=== PATIENT | male | born 1975 | race Caucasian/White ===

== ENCOUNTER 2018-09-02 12:24 | Emergency (ER) | payer OTHER ==
--- NOTE | 2018-09-02 13:05 | EDM.PDOC ---
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 He struck the back of his head fairly hard, and by report was unconscious for 1-2 minutes. He had some confusion when he came around, has some persistent nausea but no vomiting. He is starting to develop some neck stiffness, has a small amount of right wrist discomfort and right ankle discomfort. He is not repetitive, is thinking clearly and answering questions appropriately. No visual complaints. No chest pain or shortness of breath, no other musculoskeletal injury or pain. Initially a trauma code was called but on arrival the patient was obviously stable and it was canceled. Onset: Sudden Duration: Hour(s): (Within the last hour) Associated Symptoms: Reports: Confusion (Initial confusion after regaining consciousness, now clear), Nausea/Vomiting (Some nausea no vomiting), Other ( Neck is stiff, right wrist and right ankle are somewhat sore). Denies: Headaches, Shortness of Breath - Related Data Allergies Allergy/AdvReac Type Severity Reaction Status Date / Time No Known Allergies Allergy Verified 09/02/18 12:32 Home Meds: Home Meds NK [No Known Home Meds] 09/02/18 [History] Past Medical History - Past Health History Medical/Surgical History: Denies Medical/Surgical History Social & Family History - Tobacco Use Smoking Status *Q: Never Smoker Review of Systems - Review of Systems Review Of Systems: See Below Constitutional: Denies: Fever Eyes: Denies: Tunnel Vision, Vision Change Ears: Reports: No Symptoms Nose: Reports: No Symptoms Mouth/Throat: Reports: No Symptoms Respiratory: Denies: Shortness of Breath Cardiovascular: Denies: Chest Pain GI/Abdominal: Reports: Nausea. Denies: Abdominal Pain, Vomiting Musculoskeletal: Reports: Other (Mild wrist and ankle pain on the right side) Skin: Denies: Bruising Neurological: Reports: Dizziness, Other (Did have loss of consciousness for 1-2 minutes with following confusion). Denies: Headache ED EXAM, GENERAL - Physical Exam Exam: See Below Exam Limited By: No Limitations General Appearance: Alert, No Apparent Distress Eye Exam: Bilateral Eye: Normal Inspection Ears: Normal External Exam, Normal TMs Head: Atraumatic, Other (I could not find objective evidence of trauma such as abrasions, hematoma or swelling. No significant pain with palpation to the scalp ) Respiratory/Chest: No Respiratory Distress, Lungs Clear Cardiovascular: Regular Rate, Rhythm GI/Abdominal: Non-Tender Extremities: Other (A small amount of palpation tenderness around the right wrist and right ankle, no bony deformity or specific point tenderness) Neurological: Alert, Oriented, No Motor/Sensory Deficits Psychiatric: Flat Affect Skin Exam: Warm, Dry Course - Vital Signs Last Recorded V/S: Last Vital Signs Temp 97.3 F 09/02/18 12:48 Pulse 68 09/02/18 13:22 Resp 16 09/02/18 12:48 BP 139/72 09/02/18 13:22 Pulse Ox 98 09/02/18 13:22 - Re-Assessments/Exams Free Text/Narrative Re-Assessment/Exam: 09/02/18 13:05 After discussing the pros and cons of CT scanning, it was elected because of the loss of consciousness and persistent nausea at the scan would be beneficial. This was ordered without contrast. 09/02/18 13:25 IMPRESSION: Negative CT brain. No evidence of acute intracranial hemorrhage mass effect or skull fracture. Scan results were shared with the patient and his family. Although they were normal, he continued to have persistent nausea and generalized malaise. He declined any medications. 09/02/18 14:46 After an hour and a half the nausea improved, patient was able to ambulate without difficulty. He was discharged with instructions to increase activity as tolerated and recheck next week if any persistent symptoms. Departure - Departure Time of Disposition: 15:07 Disposition: Home, Self-Care 01 Clinical Impression: Concussion with brief (less than one hour) loss of consciousness - Discharge Information Instructions: Concussion, Adult, [id number] Referrals: PCP,None [Primary Care Provider] - Forms: ED Department Discharge Care Plan Goals: Increase activity as tolerated, ice to sore areas will help along with a regular dose of ibuprofen or naproxen. Recheck next week if persistent symptoms such as dizziness or light or sound sensitivity.
--- NOTE | 2018-09-02 13:23 | CRLCT ---
INDICATION: 43-year-old male. Head injury. Concussion. TECHNIQUE: CT images are obtained from foramen magnum to the vertex without contrast. FINDINGS: The lateral 3rd and 4th ventricles normal in size and shape. No evidence of acute intracranial hemorrhage no subdural fluid collections no mass effect. Basal cisterns appear normal 4th ventricle is midline. The bony calvarium is unremarkable. IMPRESSION: Negative CT brain. No evidence of acute intracranial hemorrhage mass effect or skull fracture. Please note that all CT scans at this facility use dose modulation, iterative reconstruction, and/or weight-based dosing when appropriate to reduce radiation dose to as low as reasonably achievable. Dictated by Dillan Beaulieu MD @ Sep 02 2018 1:17PM Signed by Dr. Dillan Beaulieu @ Sep 02 2018 1:21PM
== END 2018-09-02 15:08 | disposition home or self-care (01) ==
LOC: JP.ED 12:24
DX: S06.0X9A Concussion with loss of consciousness of unspecified duration, initial encounter (principal); W17.89XA Other fall from one level to another, initial encounter
CPT/HCPCS: 70450; 99284-25